=== PATIENT | male | born 1980 | race African-American/Black ===

== ENCOUNTER 2017-08-05 20:00 | Emergency (ER) | payer SELFPAY ==
--- NOTE | 2017-08-05 20:03 | PDOC ---
Rapid Medical Evaluation Time Seen by Provider: 08/05/17 20:02 Medical Evaluation: Allergies Allergy/AdvReac Type Severity Reaction Status Date / Time No Known Allergies Allergy Verified 07/30/17 10:23 08/05/17 20:02 I have performed a brief in-person evaluation of this patient. The patient presents with a chief complaint of: lt eye swelling and burning, noncompliant with drops ( prescribed on 07/30) Pertinent physical exam findings: mild sclera erythema with beige discharge, no visual changes I have ordered the following:none The patient will proceed to the ED for further evaluation.
[2017-08-05 20:06] VITALS: BP 123/83; PULSE 77; TEMP 97.8; BMI 23.6
--- NOTE | 2017-08-05 21:28 | PDOC ---
History of Present Illness - General Chief Complaint: Eye Problem Stated Complaint: EYE PROBLEM Time Seen by Provider: 08/05/17 20:02 History Source: Patient Exam Limitations: No Limitations - History of Present Illness Initial Comments: 08/05/17 21:26 36 yr male with left eye redness discomfort for 2 weeks. Pt has been using eye drops on and off and taking oral antibiotics as prescribed. pt denies visual changes, no eye discharge. Pt denies fever or chills. Pt states the eye improved however still has some discomfort no itching or fb sensation. Past History - Past Medical History Allergies/Adverse Reactions: Allergies Allergy/AdvReac Type Severity Reaction Status Date / Time No Known Allergies Allergy Verified 07/30/17 10:23 Home Medications: Ambulatory Orders Erythromycin 0.5% Eye Ointment [Erythromycin 0.5% Eye Ointment -] 1 applic OS TID #1 tube 08/05/17 COPD: No - Suicide/Smoking/Psychosocial Hx Smoking History: Current every day smoker Number of Cigarettes Smoked Daily: 12 Information on smoking cessation initiated: No 'Breaking Loose' booklet given: 07/30/17 Hx Alcohol Use: Yes Drug/Substance Use Hx: No Substance Use Type: None *Physical Exam - Vital Signs Last Vital Signs Temp Pulse Resp BP Pulse Ox 97.8 F 77 18 123/83 98 08/05/17 20:03 08/05/17 20:03 08/05/17 20:03 08/05/17 20:03 08/05/17 20:03 - Physical Exam General Appearance: Yes: Nourished, Appropriately Dressed HEENT: positive: EOMI, CELI, Other (left eye with red conjunctiva , no discharge , BEN EOMI no pain ) Neck: positive: Supple Respiratory/Chest: positive: Lungs Clear, Normal Breath Sounds Procedures - Eye Procedure Alcaine Drops Administered: Yes Progress: 08/05/17 21:42 neg fluroscein uptake neg abrasion or FB, injected conjunctiva *DC/Admit/Observation/Transfer Diagnosis at time of Disposition: Redness of eye - Discharge Dispostion Disposition: HOME Condition at time of disposition: Good - Prescriptions Prescriptions: Erythromycin 0.5% Eye Ointment [Erythromycin 0.5% Eye Ointment -] 1 applic OS TID #1 tube - Referrals Referrals: Eric Delgadillo MD [Staff Physician] - - Patient Instructions Additional Instructions: follow with call tomorrow morning to make appointment tell them you were in the ER use the eye ointment as directed for 5 days do not patch the eye - Post Discharge Activity
== END 2017-08-05 21:56 | disposition home or self-care (01) ==
LOC: JERFT 20:00
DX: H57.8 Other specified disorders of eye and adnexa (principal); F17.210 Nicotine dependence, cigarettes, uncomplicated; Z91.14 Patient's other noncompliance with medication regimen
CPT/HCPCS: 99281-25